=== PATIENT | female | born 1955 | race Caucasian/White ===

== ENCOUNTER 2023-11-08 05:31 | Emergency (ER) | payer OTHER, MEDICARE ==
[~2023-11-08] VITALS: Ht 154.9 cm; Wt 72.9 kg
[~2023-11-08 05:31] MED LIST: EST1T PO; MEDR2.5T7 PO; VERA240T PO
[2023-11-08 08:40] VITALS: TEMP 97.9
[2023-11-08 11:45] VITALS: BP 130/68; PULSE 81; RESP 16; O2SAT 99
== END 2023-11-08 12:05 | disposition home or self-care (01) ==
LOC: ER 05:32
DX: R51.9 Headache, unspecified (principal); M54.2 Cervicalgia; Z88.0 Allergy status to penicillin; Z79.899 Other long term (current) drug therapy; Z72.89 Other problems related to lifestyle; V98.8XXA Other specified transport accidents, initial encounter; Y93.89 Activity, other specified; Y92.89 Other specified places as the place of occurrence of the external cause; Y99.8 Other external cause status
CPT/HCPCS: 70450; 72125; 99285